=== PATIENT | male | born 1950 | race Caucasian/White ===

== ENCOUNTER → 2016-11-16 | Outpatient (CLI) | payer OTHER ==
[~2016-11-16] MED LIST: ALLOPURINOL100 MG PO; AUGMENTIN875 MG PO; BYSTOLIC10 MG; BYSTOLIC10 MG PO; COLCRYS0.6 MG; Ecotrin PO; IBUPROFEN800 MG PO; PANTOPRAZOLE SO20 MG PO; PANTOPRAZOLE SO40 MG; PREDNISONE20 MG PO; REFRESH LACRI-3.5 GM LEFT EYE; TEARS NATURALE1 EACH LEFT EYE; TRAMADOL HCL50 MG PO
== END | disposition home or self-care (01) ==
LOC: CDC 08:50
DX: I49.1 Atrial premature depolarization (principal)
CPT/HCPCS: 93000